=== PATIENT | female | born 1980 | race African-American/Black ===

== ENCOUNTER 2017-06-30 19:44 | Emergency (ER) | payer OTHER ==
[~2017-06-30] VITALS: Ht 152.4 cm; Wt 70.4 kg
[2017-06-30 20:59] LABS: BASOPHIL (%) 0.7 % (0-1); BASOPHIL COUNT 0.1 K/uL (0-0.1); EOSINOPHIL (%) 1.1 % (0-5); EOSINOPHIL COUNT 0.1 K/uL (0-0.3); HEMATOCRIT 45.3 % (36.0-46.0); HEMOGLOBIN 14.8 G/DL (11.9-15.5); IMMATURE GRANULOCYTE (%) 0.3 % (0.0-0.7); LYMPHOCYTE (%) 40.6 % (15-42); LYMPHOCYTE COUNT 2.9 K/uL (1.0-2.8); MCH 29.1 PG (29.0-34.0); MCHC 32.7 G/DL (30.0-36.0); MCV 89.2 FL (83-99); MONOCYTE (%) 8.8 % (3-12); MONOCYTE COUNT 0.6 K/uL (0-0.8); NEUTROPHIL (%) 48.5 % (45-76); NEUTROPHIL COUNT 3.5 K/uL (1.8-6.4); PLATELET COUNT 260 K/uL (156-360); RBC DIS.WIDTH-SD 42.6 % (39-53); RED BLOOD COUNT 5.08 M/uL (3.80-5.20); WHITE BLOOD COUNT 7.1 K/uL (4.1-10.2)
[2017-06-30 21:08] LABS: CHLORIDE 109 mEq/L (99-109); POTASSIUM 4.4 mEq/L (3.7-5.4); SODIUM 141 mEq/L (136-147)
[2017-06-30 21:10] LABS: GLUCOSE 89 mg/dL (70-99)
[2017-06-30 21:14] LABS: CREATININE 0.8 mg/dL (0.6-1.3); GFR ESTIMATE (CALCULATED) > 59 mL/min/
[2017-06-30 21:15] LABS: UREA NITROGEN (BUN) 10 mg/dL (9-23)
[2017-06-30 21:16] LABS: URIC ACID 4.3 mg/dL (3.1-9.2)
[2017-06-30 21:48] LABS: C-REACTIVE PROTEIN 5.7 MG/L (0-10)
[2017-06-30 22:04] LABS: ERTH.SED.RATE 24 MM/HR (0-20)
[2017-06-30] MEDS ORDERED: PREDNISONE20 MG PO (22:45)
[2017-06-30] MEDS ORDERED: ULTRACET1 TABLET PO (22:45)
[2017-07-01 00:48] VITALS: BP 143/86
[2017-07-01 10:44] LABS: LYME DISEASE SEROLOGY SCREEN NEGATIVE (NEGATIVE)
== END 2017-07-01 00:53 | disposition home or self-care (01) ==
LOC: EME 19:44
PROVIDERS: Physician Assistant
DX: M10.071 Idiopathic gout, right ankle and foot (principal); M19.071 Primary osteoarthritis, right ankle and foot; G89.29 Other chronic pain; F17.200 Nicotine dependence, unspecified, uncomplicated; Z98.890 Other specified postprocedural states
CPT/HCPCS: 73630; 80048; 81003; 84550; 85025; 85652; 86140; 86618; 99281; 99285; J3010; J7512

== ENCOUNTER 2017-11-03 14:33 | Emergency (ER) | payer OTHER ==
[~2017-11-03] VITALS: Ht 152.4 cm; Wt 79.6 kg
[~2017-11-03 14:33] MED LIST: PREDNISONE20 MG PO; ULTRACET1 TABLET PO
[2017-11-03 14:37] VITALS: BP 129/98
[2017-11-03 15:41] LABS: SOURCE SWAB
[2017-11-03 21:24] LABS: CANDIDA DNA PROBE NEGATIVE; GARDNERELLA DNA PROBE POSITIVE; TRICHOMONAS DNA PROBE NEGATIVE
== END 2017-11-03 15:54 | disposition home or self-care (01) ==
LOC: EME 14:33 → RME 14:33
PROVIDERS: Nurse Practitioner Family
DX: N89.8 Other specified noninflammatory disorders of vagina (principal); Z20.2 Contact with and (suspected) exposure to infections with a predominantly sexual mode of transmission; J45.909 Unspecified asthma, uncomplicated; F41.9 Anxiety disorder, unspecified; F17.200 Nicotine dependence, unspecified, uncomplicated; Z86.19 Personal history of other infectious and parasitic diseases; Z98.890 Other specified postprocedural states
CPT/HCPCS: 87210; 87480; 87491; 87510; 87591; 87660; 99281; 99285; J0696; Q0177